=== PATIENT | female | born 1980 | race Caucasian/White ===

== ENCOUNTER → 2019-11-05 12:19 | Outpatient (CLI) | payer OTHER, SELFPAY ==
--- NOTE | 2019-11-05 12:24 | DI.MRI.S_ITS ---
PROCEDURE: MR CHEST WO CON INDICATIONS: Intercostal pain,Other chest ,Pain in thoracic spi COMPARISON: None. TECHNIQUE: The patient was placed supine in a body coil. Large field of view coronal STIR sequence was obtained. Following this sequence, the patient was placed prone in a breast coil and an axial STIR sequence was obtained. FINDINGS: Image quality: Excellent. Bones and joints: Visualized lower cervical and thoracic spine vertebral bodies are normally aligned. There is no marrow edema. No compression fracture or spondylolisthesis. Sternum is intact. Bilateral ribs are intact. No marrow edema. No suspicious intraosseous lesion. Soft tissues: Visualized bilateral lung vann are clear. Heart size is normal, no pericardial effusion. There is no thoracic aortic aneurysm. No gross mediastinal or hilar lymphadenopathy. No gross paraspinous or intercostal soft tissue abnormality. Bilateral chest wall muscles are normal in size and signal. No axillary lymphadenopathy. IMPRESSION: Unremarkable MR examination of chest. No finding to explain patient's symptoms. Dictated by: Gurinder Boothe M.D. on 11/08/2019 at 9:22 Approved by: Gurinder Boothe M.D. on 11/08/2019 at 9:35
--- NOTE | 2019-11-05 12:24 | DI.MRI.S_ITS ---
PROCEDURE: MR THORACIC SPINE WO CON INDICATIONS: Intercostal pain,Other chest ,Pain in thoracic spi TECHNIQUE: Noncontrast sagittal T1 spine echo and T2 fast spin echo, sagittal STIR, axial T1 and T2 fast spin echo through the thoracic spine. COMPARISON: [facility], CR, XR THORACIC SPINE 2 VIEWS, 09/29/2019, 8:21. [facility], MR, MR CHEST WO CON, 11/05/2019, 13:08. FINDINGS: Image quality: Excellent. Alignment and Curvature: There is normal bony alignment. Bone Marrow: Marrow is of normal overall signal. No acute vertebral body compression fractures. Spinal Cord: Visualized spinal cord is normal in size and signal. Paraspinous Soft Tissues: No paravertebral masses. Miscellaneous: On axial images, central canal and foramina appear widely patent at all scanned levels. IMPRESSION: 1. No vertebral body compression fracture. 2. No central stenosis. 3. No neural foraminal narrowing. 4. No neural compression. Dictated by: Natalie Issa MD, PhD on 11/08/2019 at 10:55 Approved by: Natalie Issa MD, PhD on 11/08/2019 at 10:58
== END ==
PROVIDERS: Referring Provider Internal Medicine Rheumatology; Visit Provider Internal Medicine Rheumatology
DX: R07.82 Intercostal pain (principal); R07.89 Other chest pain; M54.6 Pain in thoracic spine
CPT/HCPCS: 71550; 72146

== ENCOUNTER 2025-01-23 13:39 | Emergency (ER) | payer OTHER, SELFPAY ==
[2025-01-23 13:53] VITALS: BP 148/92; PULSE 78; RESP 17; TEMP 37.1; O2SAT 99; BMI 20.1
--- NOTE | 2025-01-23 14:11 | EKG_ITS ---
[facility] [address] [place] [address] Test Date: 2025-01-23 Pat Name: Anca Butt Department: [facility] Room: Gender: Female Transfer Operator: : 1980 Requested By: Order Number: [id number] Reading MD: Angel Perez Measurements Intervals [place] Rate: 66 P: 63 OK: 160 QRS: 61 QRSD: 92 T: 47 QT: 406 QTc: 425 Interpretive Statements Normal sinus rhythm Electronically Signed On 01-24-2025 19:03:44 PST by Angel Perez
[2025-01-23 14:49] LABS: Add Manual Diff / Slide Review NO; Hematocrit 41.5 % (36-46); Hemoglobin 14.2 g/dL (12.0-16.0); Lymphocytes Absolute Auto 2100 /uL (1100-4500); Mean Corpuscular HGB Conc 34.3 % (30-36); Mean Corpuscular Hemoglobin 33.1 PG (26-34); Mean Corpuscular Volume 96.3 fL (80-100); Platelet Count 219 X10^3/uL (150-400)
[2025-01-23 14:54] LABS: Alanine Aminotransferase 49 IU/L (<35); Albumin 5.0 g/dL (3.5-5.0); Albumin Globulin Ratio 1.5 (1.0-2.8); Alkaline Phosphatase 65 U/L (38-126); Blood Urea Nitrogen 8 mg/dL (7-17); Calcium 9.0 mg/dL (8.4-10.2); Carbon Dioxide 26 mmol/L (22-32); Chloride 103 mmol/L (98-107); Estimated Glomerular Filt Rate > 60 mL/min (>60); Globulin 3.3 g/dL (1.7-4.1); Glucose 88 mg/dL (70-99); HEMOLYSIS < 15 (0-50); Lipase 63 U/L (23-300); Potassium 3.6 mmol/L (3.4-5.1); Sodium 140 mmol/L (137-145); Total Protein 8.3 g/dL (6.3-8.2)
[2025-01-23 15:33] LABS: Culture Indicated Urine Cult Not Indicated
--- NOTE | 2025-01-23 16:19 | DI.CT.S_ITS ---
PROCEDURE: CT ABDOMEN PELVIS W CON INDICATIONS: lower abd pain TECHNIQUE: After the administration of intravenous contrast, axial sections acquired from the lung bases to the pubic symphysis. Coronal and sagittal reformats were performed. For radiation dose reduction, the following was used: automated exposure control, adjustment of mA and/or kV according to patient size. COMPARISON: None. FINDINGS: Image quality: Diagnostic. Lower Chest: No significant findings. ABDOMEN: Liver: No solid mass. Gallbladder: No radiopaque gallstones or wall thickening. Biliary ducts: No biliary dilation. Pancreas: No ductal dilation. Spleen: Size is within normal limits. Adrenal Glands: No adrenal nodules. Kidneys and Ureters: No hydronephrosis. No solid mass. No complex renal cystic lesion which requires follow up. Stomach and Bowel: Normal colonic caliber, without significant wall thickening. Partial visualization of a normal appendix. Peritoneum: No abnormal intraperitoneal fluid. No free air. Ventral Wall: No significant ventral hernia. Abdominal Nodes: No retroperitoneal or mesenteric adenopathy by size criteria. Vessels: Aorta and inferior vena cava are normal in size. PELVIS: Pelvic Organs: Unremarkable. Bladder: No bladder wall thickening, accounting for underdistention. Pelvic Nodes: No enlarged lymph nodes. Miscellaneous: No inguinal hernias are seen. Bones: No aggressive osseous abnormality. IMPRESSION: No acute abdominal process identified. Normal appendix. Normal appearance of the bladder. Dictated by: Shay Lane M.D. on 01/23/2025 at 16:56 Approved by: Shay Lane M.D. on 01/23/2025 at 16:59
--- NOTE | 2025-01-23 17:16 | ED_ITS ---
HPI - Female Genitourinary <Valeriano Dillon PA-C - Last Filed: 01/23/25 17:35> General Chief complaint: Urogenital-Female Stated complaint: Possible UTI Time Seen by Provider: 01/23/25 14:52 Source: patient Mode of arrival: Ambulatory History of Present Illness HPI Narrative: 44-year-old female presents to the ED with burning vaginal discomfort and lower abdominal pain. Patient states that she was treated with antibiotics for a UTI about a month ago, following which she has had these burning symptoms. Patient has tried some [id number] yeast infection remedies without success. No fever, chills, nausea, vomiting, lightheadedness, dizziness, syncope. Related Data Previous Rx's ?Medication ?Instructions ?Recorded fluconazole 150 mg tablet 150 mg PO Q3D 2 doses #2 tab s 01/23/25 Allergies Allergy/AdvReac Type Severity Reaction Status Date / Time tramadol Allergy Mild ITCHING Verified 01/23/25 13:56 sertraline (From Zoloft) AdvReac pain waist Verified 01/23/25 13:56 down arithromycin Allergy Rash Uncoded 01/23/25 13:56 Review of Systems <Valeriano Dillon PA-C - Last Filed: 01/23/25 17:35> Constitutional Constitutional: Denies chills, Denies fatigue, Denies fever(s), Denies frequent falls, Denies lethargy and Denies weakness Eyes Eyes: Denies change in vision, Denies eye discharge, Denies irritation and Denies loss of vision ENT Ears, Nose, Mouth, and Throat: Denies change in voice, Denies dizziness, Denies neck pain, Denies sore throat and Denies throat swelling Cardiovascular Cardiovascular: Denies chest pain, Denies irregular heart rhythm, Denies lightheadedness, Denies palpitations, Denies dyspnea, Denies dyspnea on exertion and Denies orthopnea Respiratory Respiratory: Denies cough, Denies dyspnea, Denies dyspnea on exertion and Denies wheezing Gastrointestinal Gastrointestinal: Reports abdominal pain, Denies change in bowel habits, Denies diarrhea, Denies nausea and Denies vomiting Genitourinary Comments: Burning vaginal discomfort Musculoskeletal Musculoskeletal: Denies neck pain and Denies numbness Integumentary/Breasts Skin/Breast: Denies pruritus, Denies erythema, Denies rash and Denies wounds Neurologic Neurologic: Denies behavioral changes, Denies confusion, Denies dizziness, Denies frequent falls, Denies loss of vision, Denies numbness and Denies weakness Psychiatric Psychiatric: Denies anxiety, Denies behavioral changes, Denies confusion, Denies depression, Denies homicidal ideation and Denies suicidal ideation Endocrine Endocrine: Denies fatigue, Denies flushing and Denies palpitations Hematologic/Lymphatic Hematologic/Lymphatic: Denies easy bruising Allergic/Immunologic Allergic/Immunologic: Denies urticaria, Denies throat swelling and Denies wheezing Exam <Valeriano Dillon PA-C - Last Filed: 01/23/25 17:35> Narrative Exam Narrative: Const General:?cooperative, healthy appearing and comfortable [facility] Head:?normal to inspection Ears:?hearing grossly normal bilaterally Nose:?external nose normal Face and sinus:?normal facial exam and sinuses nontender Mouth:?oral mucosae normal Throat:?posterior oropharynx normal Eyes General:?appearance normal, both eyes and all related structures Neck Neck:?normal visual inspection and no lymphadenopathy noted Resp Effort & Inspection:?normal respiratory effort Auscultation:?clear to auscultation bilaterally Cardio Rate:?regular rate Rhythm:?regular rhythm GI/ Abdomen is soft, nondistended, mildly tender to palpation in the LQ and suprapubic regions. No CVA tenderness. External vaginal exam shows erythema, cottage cheese discharge consistent with yeast infection. Neuro General:?patient alert, patient awake and patient oriented x3 Initial Vital Signs Initial Vital Signs: Vital Signs Temperature 98.8 F 01/23/25 13:53 Pulse Rate 78 01/23/25 13:53 Respiratory Rate 17 01/23/25 13:53 Blood Pressure 148/92 H 01/23/25 13:53 Pulse Oximetry 99 01/23/25 13:53 Oxygen Delivery Method Room Air 01/23/25 13:53 <Nils Stokes MD - Last Filed: 01/23/25 22:14> Initial Vital Signs Initial Vital Signs: Vital Signs Temperature 98.8 F 01/23/25 13:53 Pulse Rate 78 01/23/25 13:53 Respiratory Rate 17 01/23/25 13:53 Blood Pressure 148/92 H 01/23/25 13:53 Pulse Oximetry 99 01/23/25 13:53 Oxygen Delivery Method Room Air 01/23/25 13:53 Course <Valeriano Dillon PA-C - Last Filed: 01/23/25 17:35> Orders Ordered: ED Orders 01/23/25 13:55 Urine Microscopic Stat 01/23/25 14:11 EKG-12 Lead Stat 01/23/25 14:21 Complete Blood Count AUTO DIFF Stat Comprehensive Metabolic Panel Stat Lipase Stat 01/23/25 16:19 CT abdomen pelvis w con Stat Discontinued Medications Ondansetron HCl (Ondansetron 4 Mg/2 Ml Inj) 4 mg IV NOW PRN PRN Reason: Nausea And Vomiting Ondansetron HCl (Ondansetron 4 Mg Odt) 4 mg PO NOW PRN PRN Reason: Nausea And Vomiting Vital Signs Vital signs: Vital Signs - 8 hr 01/23/25 17:48 Pulse Rate 80 Respiratory Rate 16 Blood Pressure 138/78 Pulse Oximetry 99 Oxygen Delivery Method Room Air <Nils Stokes MD - Last Filed: 01/23/25 22:14> Orders Ordered: ED Orders 01/23/25 13:55 Urine Microscopic Stat 01/23/25 14:11 EKG-12 Lead Stat 01/23/25 14:21 Complete Blood Count AUTO DIFF Stat Comprehensive Metabolic Panel Stat Lipase Stat 01/23/25 16:19 CT abdomen pelvis w con Stat Discontinued Medications Ondansetron HCl (Ondansetron 4 Mg/2 Ml Inj) 4 mg IV NOW PRN PRN Reason: Nausea And Vomiting Ondansetron HCl (Ondansetron 4 Mg Odt) 4 mg PO NOW PRN PRN Reason: Nausea And Vomiting Vital Signs Vital signs: Vital Signs - 8 hr 01/23/25 17:48 Pulse Rate 80 Respiratory Rate 16 Blood Pressure 138/78 Pulse Oximetry 99 Oxygen Delivery Method Room Air MDM - Female Genitourinary <Valeriano Dillon PA-C - Last Filed: 01/23/25 17:35> Lab Data 01/23/25 14:21 01/23/25 14:21 Labs: Lab Results 01/23/25 01/23/25 Range/Units 13:55 14:21 WBC 8.2 (4.5-11.0) X10^3/uL RBC 4.31 (4.0-5.2) X10^6/uL Hgb 14.2 (12.0-16.0) g/dL Hct 41.5 (36-46) % MCV 96.3 (80-100) fL MCH 33.1 (26-34) PG MCHC 34.3 (30-36) % RDW 12.9 (11.6-14.8) % Plt Count 219 (150-400) X10^3/uL Neut % (Auto) 66.1 (50-75) % Lymph % (Auto) 25.2 (25-40) % [place] % (Auto) 4.6 (3-14) % Eos % (Auto) 3.8 (2-4) % Baso % (Auto) 0.3 (0-2) % Neut # (Auto) 5400 (7750-4030) /uL Lymph # (Auto) 2100 (8112-9131) /uL [place] # (Auto) 400 (0-900) /uL Eos # (Auto) 300 (0-450) /uL Baso # (Auto) 0 (0-100) /uL Sodium 140 (137-145) mmol/L Potassium 3.6 (3.4-5.1) mmol/L Chloride 103 (98-107) mmol/L Carbon Dioxide 26 (22-32) mmol/L BUN 8 (7-17) mg/dL Creatinine 0.72 (0.52-1.04) mg/dL Estimated GFR > 60 (>60) mL/min BUN/Creatinine Ratio 11.1 (6-22) Glucose 88 (70-99) mg/dL Calcium 9.0 (8.4-10.2) mg/dL Total Bilirubin 1.2 (0.2-1.3) mg/dL AST 45 H (14-36) IU/L ALT 49 H (<35) IU/L Alkaline Phosphatase 65 (38-126) U/L Total Protein 8.3 H (6.3-8.2) g/dL Albumin 5.0 (3.5-5.0) g/dL Globulin 3.3 (1.7-4.1) g/dL Albumin/Globulin Ratio 1.5 (1.0-2.8) Lipase 63 (23-300) U/L Urine RBC 1-5/hpf (0-5/HPF) Urine WBC 1-5/hpf (0-5/HPF) Ur Squamous Epith Cells 1-5 /hpf (0-5/HPF) Urine Bacteria Few (2-10) H (None) Ur Culture Indicated? Cult not indicated Vol Urine Centrifuged 10ml (spun) Point of Care Testing Test Results Negative Urine Dip Bedside Urine Glucose Negative Bedside Urine Bilirubin - Negative Bedside Urine Ketone + 15 Urine Specific [place] 1.015 Bedside Urine Occult Blood + Bedside Urine pH 6.0 Bedside Urine Protein - Negative Bedside Urine Urobilinogen - Negative Bedside Urine Nitrite - Negative Bedside Urine Leukocytes - Negative Esterase MDM Narrative Medical decision making narrative: 44-year-old female presents to the ED with burning vaginal discomfort and lower abdominal pain. Obtain labs, UA, CT abdomen pelvis. Labs unremarkable. UA without UTI. CT abdomen pelvis without acute findings. External vaginal exam consistent with a yeast infection. Prescribed fluconazole. Recommend follow-up with OBGYN if symptoms do not improve. ED return precautions discussed with patient. Patient verbalized understanding. Medical records reviewed: Yes <Nils Stokes MD - Last Filed: 01/23/25 22:14> Lab Data Labs: Lab Results 01/23/25 01/23/25 Range/Units 13:55 14:21 WBC 8.2 (4.5-11.0) X10^3/uL RBC 4.31 (4.0-5.2) X10^6/uL Hgb 14.2 (12.0-16.0) g/dL Hct 41.5 (36-46) % MCV 96.3 (80-100) fL MCH 33.1 (26-34) PG MCHC 34.3 (30-36) % RDW 12.9 (11.6-14.8) % Plt Count 219 (150-400) X10^3/uL Neut % (Auto) 66.1 (50-75) % Lymph % (Auto) 25.2 (25-40) % [place] % (Auto) 4.6 (3-14) % Eos % (Auto) 3.8 (2-4) % Baso % (Auto) 0.3 (0-2) % Neut # (Auto) 5400 (0287-8196) /uL Lymph # (Auto) 2100 (0965-4853) /uL [place] # (Auto) 400 (0-900) /uL Eos # (Auto) 300 (0-450) /uL Baso # (Auto) 0 (0-100) /uL Sodium 140 (137-145) mmol/L Potassium 3.6 (3.4-5.1) mmol/L Chloride 103 (98-107) mmol/L Carbon Dioxide 26 (22-32) mmol/L BUN 8 (7-17) mg/dL Creatinine 0.72 (0.52-1.04) mg/dL Estimated GFR > 60 (>60) mL/min BUN/Creatinine Ratio 11.1 (6-22) Glucose 88 (70-99) mg/dL Calcium 9.0 (8.4-10.2) mg/dL Total Bilirubin 1.2 (0.2-1.3) mg/dL AST 45 H (14-36) IU/L ALT 49 H (<35) IU/L Alkaline Phosphatase 65 (38-126) U/L Total Protein 8.3 H (6.3-8.2) g/dL Albumin 5.0 (3.5-5.0) g/dL Globulin 3.3 (1.7-4.1) g/dL Albumin/Globulin Ratio 1.5 (1.0-2.8) Lipase 63 (23-300) U/L Urine RBC 1-5/hpf (0-5/HPF) Urine WBC 1-5/hpf (0-5/HPF) Ur Squamous Epith Cells 1-5 /hpf (0-5/HPF) Urine Bacteria Few (2-10) H (None) Ur Culture Indicated? Cult not indicated Vol Urine Centrifuged 10ml (spun) Point of Care Testing Test Results Negative Urine Dip Bedside Urine Glucose Negative Bedside Urine Bilirubin - Negative Bedside Urine Ketone + 15 Urine Specific [place] 1.015 Bedside Urine Occult Blood + Bedside Urine pH 6.0 Bedside Urine Protein - Negative Bedside Urine Urobilinogen - Negative Bedside Urine Nitrite - Negative Bedside Urine Leukocytes - Negative Esterase MDM Narrative Medical decision making narrative: 44-year-old female presents to the ED with burning vaginal discomfort and lower abdominal pain. Obtain labs, UA, CT abdomen pelvis. Labs unremarkable. UA without UTI. CT abdomen pelvis without acute findings. External vaginal exam consistent with a yeast infection. Prescribed fluconazole. Recommend follow-up with OBGYN if symptoms do not improve. ED return precautions discussed with patient. Patient verbalized understanding. Medical records reviewed: Yes I was available for consultation during this patient's visit was not involved in the care. Discharge Plan Departure Patient Disposition: Home Clinical Impression: Vaginal yeast infection Instructions: Vaginal Yeast Infection Activity Restrictions/Additional Instructions: You were evaluated in the emergency department for vaginal discomfort and burning and abdominal pain. CT scan, labs and urine were normal. You likely have a vaginal yeast infection following the course of antibiotics for the UTI. You are being prescribed fluconazole to take as directed. If your symptoms still persist, please follow-up with your OBGYN as soon as possible. Return to the ED if you have worsening symptoms. Prescriptions: New fluconazole 150 mg tablet 150 mg PO Q3D Qty: 2 0RF Rx Instructions: may repeat second dose 72 hrs after first dose if symptoms persist Referrals: [facility] [Primary Care Provider, Family Practice] Stand Alone Forms: Patient Portal/API
[2025-01-23 17:48] VITALS: BP 138/78; PULSE 80; RESP 16; O2SAT 99
== END 2025-01-23 17:49 | disposition home or self-care (01) ==
PROVIDERS: Emergency Medicine; Emergency Provider Student in an Organized Health Care Education/Training Program
DX: B37.31 Acute candidiasis of vulva and vagina (principal); R10.30 Lower abdominal pain, unspecified
CPT/HCPCS: 74177; 80053; 81003; 81015; 81025; 83690; 85025; 93005; 99282; 99284; Q9967